=== PATIENT | female | born 1940 | race Caucasian/White ===

== ENCOUNTER 2019-06-05 06:06 | Inpatient (IN) ==
--- NOTE | 2019-05-10 14:16 | PAT Medication Instructions ---
Medication Instructions Date of Service May 10, 2019 Home Medications acetaminophen [Tylenol Extra Strength] 500 mg PO Q6H PRN ferrous sulfate 325 mg PO 3XWK tramadol 50 mg PO UD PRN furosemide [Lasix] 40 mg PO UD PRN potassium chloride 20 meq PO UD PRN DO NOT take the morning of surgery ferrous sulfate 325 mg PO 3XWK furosemide [Lasix] 40 mg PO UD PRN potassium chloride 20 meq PO UD PRN Take morning of surgery With a small sip of water, OTHERWISE NOTHING TO EAT OR DRINK AFTER MIDNIGHT: acetaminophen [Tylenol Extra Strength] 500 mg PO Q6H PRN (if needed, may be taken up to four hours before surgery) tramadol 50 mg PO UD PRN (if needed, may be taken up to four hours before surgery) Other Notes If you have any questions please call us at [phone] or [phone] or [phone] or [phone]
--- NOTE | 2019-05-11 11:29 | Anesthesiology Consultation ---
Date of Service May 11, 2019 Assessment & Plan (1) Encounter for pre-operative examination: Chart Review Chart Review: Acceptable Risk for Surgery ((attempting to get previous anesthesia records)) and Patient seen in Pre Admission Testing Significant scoliosis and kyphosis- had left AUNG with spinal anesthesia with [facility] in [place] - will attempt to get records Pre op labs showing- mild anemia noted on pre op labs- improved from 01/2019. Blood noted in urine- labs faxed to PCP for review for continuity of care- UA not a contraindication to anesthesia. History Surgery Operation Date: 06/05/19 08:10 Proposed Procedures p Right Total Hip Arthroplasty - Haydencecilia Schwartz Height/Weight Height: 5 ft 4 in Weight: 54.2 kg Allergies Allergy/AdvReac Type Severity Reaction Status Date / Time No Known Allergies Allergy Unverified 05/04/19 08:38 Medications Home Medications Medication Instructions Recorded Confirmed Last Taken acetaminophen [Tylenol Extra 500 mg PO Q6H PRN 01/10/19 05/04/19 01/09/19 Strength] 1000 mg ferrous sulfate 325 mg PO 3XWK 01/10/19 05/04/19 01/09/19 tramadol 50 mg PO UD PRN 01/10/19 05/04/19 02/03/19 22:00 50 mg furosemide [Lasix] 40 mg PO UD PRN 05/04/19 05/04/19 Unknown potassium chloride 20 meq PO UD PRN 05/04/19 05/04/19 Unknown Past Medical History Medical History (Updated 05/11/19 @ 11:54 by Laura Pena PA-C) History of gastric ulcer 2018 (approx one year ago)- no current issues Lower extremity edema Occ- takes Lasix PRN Osteoarthritis Exercise / Class Metabolic Activity II 4-5 Yardwork/Stairs/Walk up hill (one flight of stairs- no chest pain or SOB ) Past Surgical History Surgical History (Updated 05/11/19 @ 11:55 by Laura Pena PA-C) History of cataract surgery BOTH History of section History of colonoscopy History of dilatation and curettage History of endoscopy History of total left hip replacement 12/27/2018 ([facility] in [place]) Past Anesthesia History No Hx of Anesthesia Complications and No Family Hx of Anesthesia Complications History of PONV No Hx of PONV and No Hx of Motion Sickness Social History Smoking Status: Never smoker Do You Dip or Chew Tobacco: No Smoking End Date: YRS AGO Hx Alcohol Use: Yes Alcohol type: wine alcohol intake frequency: holidays/special occasions only Hx Substance Use: No substance use type: prescription drug Review of Systems Patient denies chest pain, shortness of breath, dyspnea on exertion, reflux, cough, wheezing, palpitations. No hx of seizures, stroke, PR, apnea/snoring. No hx of blood clots or blood transfusions No recent steroid use Physical Exam Vital Signs VITALS BP 146/69 P 69 TEMP 98.4 SP02 99% RESP 18 Constitutional no acute distress ENMT Mouth: no TMJ clicking Thyromental Distance: > or= 3.5 Finger Breadths (4.0) Mallampati Class: II Full dentures upper and lower Neck normal visual inspection and + limited neck extension (minimal ) Respiratory normal respiratory effort; no respiratory distress Auscultation: lungs clear to auscultation bilaterally; no wheezes Cardiovascular Rate/Rhythm: regular rate and regular rhythm Vessels: no carotid bruit Musculoskeletal Spine: + kyphosis (moderately severe ) and + scoliosis (significant ); no pain with cervical ROM Psychiatric Orientation: alert Testing Laboratory Results 05/11/19 11:38 05/11/19 11:38 PT 10.9 Seconds (9.0-12.0) 05/11/19 11:38 INR 1.1 (0.9-1.1) 05/11/19 11:38 APTT 25.1 Seconds (21.0-31.0) 05/11/19 11:38 Urine Color Dark Yellow 05/11/19 11:38 Urine Appearance Clear (Clear) 05/11/19 11:38 Urine pH 5.0 (4.5-7.5) 05/11/19 11:38 Ur Specific [place] 1.029 (1.000-1.030) 05/11/19 11:38 Urine Protein Negative (Negative) 05/11/19 11:38 Urine Glucose (UA) Negative (Negative) 05/11/19 11:38 Urine Ketones Negative (Negative) 05/11/19 11:38 Urine Nitrite Negative (Negative) 05/11/19 11:38 Ur Leukocyte Esterase Trace (Negative) H 05/11/19 11:38 Urine WBC (Auto) 5-10 /hpf (0-5) H 05/11/19 11:38 Urine RBC (Auto) 10-30 /hpf (0-4) H 05/11/19 11:38 U Hyaline Cast (Auto) 1-5 /lpf (0-5) 05/11/19 11:38 U Epithel Cells (Auto) >30 /lpf (0-5) H 05/11/19 11:38 Urine Bacteria (Auto) Negative (Negative) 05/11/19 11:38 Blood Type O Positive 05/11/19 11:38 Antibody Screen NEGATIVE 05/11/19 11:38 Electrocardiogram Date: 02/04/19 Findings: + NSR @ (98) Voltage criteria for left ventricular hypertrophy. Chest X-Ray Date: 01/10/19 Cardiomegaly. No other convincing evidence of acute cardiopulmonary disease. Possible hyperinflation versus exaggerated thoracic kyphosis. Atherosclerosis of the aortic arch. Cardiac silhouette enlarged. Osteopenia. SPECT gated exaggerated thoracic kyphosis. Scoliosis and degenerative changes of the spine.
[2019-05-11 12:04] LABS: Basophils # (auto) 0.02 K/uL (0-0.2); Basophils % (auto) 0.3 %; Eosinophils # (auto) 0.15 K/uL (0-0.5); Eosinophils % (auto) 2.1 %; Hematocrit (blood only) 40.1 % (37-47); Hemoglobin 11.9 g/dL (12.0-16.0); Immature Granulocytes # (auto) 0.01 K/uL (0.00-0.02); Immature Granulocytes % (auto) 0.1 %; Lymphocytes # (auto) 1.59 K/uL (1.2-3.4); Lymphocytes % (auto) 22.3 %; Mean Corpuscular Hemoglobin 24.9 pg (25-34); Mean Corpuscular Hgb Conc 29.7 g/dL (32-36); Mean Corpuscular Volume 83.9 fL (80-100); Monocytes # (auto) 0.53 K/uL (0.11-0.59); Monocytes % (auto) 7.4 %; Neutrophils # (auto) 4.83 K/uL (1.4-6.5); Neutrophils % (auto) 67.8 %; Platelet Count 274 K/uL (130-400); RDW Coefficient of Variation 17.2 % (11.5-14.5); RDW Standard Deviation 53.7 fL (36.4-46.3); Red Blood Count 4.78 M/uL (4.2-5.4); White Blood Count 7.13 K/uL (4.8-10.8)
[2019-05-11 12:10] LABS: Appearance Urine Clear (Clear); Bacteria Urine Automated Negative (Negative); Bilirubin Urine Negative (Negative); Blood Urine 2+ (Negative); Color Urine Dark Yellow; Epithelial Cell Urine Auto >30 /lpf (0-5); Glucose Urine UA Negative (Negative); Ketones Urine Negative (Negative); Leukocyte Esterase Urine Trace (Negative); Nitrite Urine Negative (Negative); Protein Urine Negative (Negative); Specific Gravity Urine 1.029 (1.000-1.030); Urobilinogen Urine Negative (Negative)
[2019-05-11 12:14] LABS: INR 1.1 (0.9-1.1); Partial Thromboplastin Ratio 0.9; Partial Thromboplastin Time 25.1 Seconds (21.0-31.0); Prothrombin Time 10.9 Seconds (9.0-12.0)
[2019-05-11 12:19] LABS: Albumin Level 3.5 gm/dl (3.4-5.0); BUN Creatinine Ratio 29.1 (10-20); Calcium 9.2 mg/dl (8.5-10.1); Creatinine Clr Calc Pharmacy 58.2 ml/min; Est GFR (African American) 95.9; Est GFR (Non-African American) 82.7; Potassium 4.3 mmol/L (3.5-5.1)
[2019-05-11 12:22] LABS: Albumin Globulin Ratio 0.9 (0.9-2); Bilirubin,Total 0.2 mg/dl (0.2-1); Globulin 3.7 gm/dl (2.5-4.0); Total Protein 7.2 gm/dl (6.4-8.2)
--- NOTE | 2019-06-04 19:39 | History & Physical Report ---
Date of Service June 04, 2019 Assessment & Plan (1) Degenerative joint disease of right hip: Plan is to admit and undergo right AUNG. History of Present Illness Chief Complaint: right hip pain Primary Care Provider: Reynaldo [place] DO Pt having right hip and groin pain for years. Using a cane and walker for about 2 years now. Allergies Allergy/AdvReac Type Severity Reaction Status Date / Time No Known Allergies Allergy Unverified 05/04/19 08:38 Home Medications Home Medications Medication Instructions Recorded Confirmed Type acetaminophen [Tylenol Extra 500 mg PO Q6H PRN 01/10/19 05/04/19 History Strength] ferrous sulfate 325 mg PO 3XWK 01/10/19 05/04/19 History tramadol 50 mg PO UD PRN 01/10/19 05/04/19 History furosemide [Lasix] 40 mg PO UD PRN 05/04/19 05/04/19 History potassium chloride 20 meq PO UD PRN 05/04/19 05/04/19 History Past Med/Surg History Medical History (Updated 06/04/19 @ 19:43 by Hayden Schwartz) History of gastric ulcer 2018 (approx one year ago)- no current issues Lower extremity edema Occ- takes Lasix PRN Osteoarthritis Surgical History (Updated 05/11/19 @ 11:55 by Laura Pena PA-C) History of cataract surgery BOTH History of section History of colonoscopy History of dilatation and curettage History of endoscopy History of total left hip replacement 12/27/2018 ([facility] in [place]) Social History Preferred Language: Danish Communication Ability: Effective Welfare Aide Required: No Beliefs That Will Affect Care: None Current Living Situation: Spouse Other Information That Helps Us Care for You: No Feels Safe at Home: Yes Smoking Status: Never smoker Do You Dip or Chew Tobacco: No ; Smoking End Date: YRS AGO ; Hx Alcohol Use: Yes Alcohol type: wine Hx Substance Use: No Review of Systems All systems reviewed & are unremarkable except as noted in HPI & below Physical Exam Constitutional: WD/WN, vitals as above Neck: trachea midline, no thyromegaly Respiratory: normal respiratory effort, lungs clear to auscultation Cardiovascular: RRR, no murmur, no edema Gastrointestinal (Abdomen): normal bowel sounds, soft, nontender, no hepatospl enomegaly Musculoskeletal: Hip: + limited ROM of hip and + hip ROM with crepitation
[~2019-06-05 06:06] MED LIST: ACETAMINOPHEN 500 MG TAB PO SCH; CEFAZOLIN 1000MG 1,000 MG/7.5 ML SYR IV SCH; CeleBREX 200 MG CAP PO SCH; FAMOTIDINE 20 MG TAB PO SCH; LR 500ML BOLUS, THEN 15ML/HR IV SCH; LR 60ML/HR IV SCH; METOCLOPRAMIDE HCL 10 MG TABLET PO SCH; ROPIVACAINE 0.5% HCL/PF 150 MG, BUPIVACAINE 0.5% MPF 30 ML, EPINEPHrine 30MG/30ML (OR U... INSTIL SCH; TRANEXAMIC ACID 1,000 MG **IV Intra-op IV SCH; TRANEXAMIC ACID 1,000 MG **IV Pre-op IV SCH; dexAMETHasone 4 MG TAB PO SCH
[2019-06-05] MEDS ORDERED: BUPIVACAINE 0.5 % 5 MG/1 ML PF 10ML VIAL ONE (06:31)
--- NOTE | 2019-06-05 06:46 | History & Physical Bridge Note ---
Date of Service June 05, 2019 History & Physical Bridge Note I have examined the patient, reviewed the History & Physical and in the interval since the performance of the History & Physical I have noted the following changes of clinical significance: no changes noted
[2019-06-05] MEDS ORDERED: MIDAZOLAM HCL 1 MG/ML 2ML VIAL ONE ×2 (06:52→07:02)
[2019-06-05] MEDS ORDERED: PROPOFOL IV EMULSION 10 MG/ML 20 ML VIAL IV ONE (07:01)
[2019-06-05] MEDS ORDERED: LIDOCAINE HCL 2% 2 ML VIAL/AMP(20MG/ML) INFIL ONE (07:01)
[2019-06-05] MEDS ORDERED: ePHEDrine sulfate 50 MG/ML AMP IV PRN (07:17)
[2019-06-05] MEDS ORDERED: ONDANSETRON INJ 2 MG/ML 2 ML VIAL IV PRN ×2 (07:17→10:55)
[2019-06-05] MEDS ORDERED: PHENYLEPHRINE 100MCG/ML 5ML SYR IV PRN (07:17)
[2019-06-05] MEDS ORDERED: HYDROmorphone INJ 1 MG/ML SYRINGE IV PRN (07:17)
[2019-06-05] MEDS ORDERED: ATROPINE SULFATE 0.1 MG/ML 10ML SYR IV PRN (07:17)
[2019-06-05] MEDS ORDERED: ORTHO JOINT ANESTHETIC ONE (07:39)
[2019-06-05] MEDS ORDERED: BACITRACIN INJ 50,000 UNIT VIAL ONE (07:39)
[2019-06-05] MEDS ORDERED: CEFAZOLIN 250 MG/ML 1 GM VIAL ONE (09:01)
--- NOTE | 2019-06-05 09:16 | Operative Report ---
Post Operative Report Pre & Post Diagnosis Operation Date: 06/05/19 08:10 Pre-Op Diagnosis: Right Hip Osteoarthritis Post-Op Diagnosis: Right Hip Osteoarthritis I identified the patient and participated in the time-out.: Yes Procedure Operation Date: 06/05/19 08:10 Actual Procedures p Right Total Hip Arthroplasty(Right) - Hayden Schwartz Surgeon Hayden Schwartz Town Manager Abhilash Begum pac Estimated Blood Loss 40 Findings Consistent with Post-Op Diagnosis Specimens none Complications none Disposition Disposition: Recovery Room Description of Procedure IMPLANTS USED: Hailey size 62 mm acetabular cup, 1 acetabular screw, 36 mm X3 elevated liner, a #5 Accolade 2 stem with a 127 neck, 36 mm +0 ceramic head INDICATIONS: Mrs. Lyons is a pleasant female who has unfortunately failed all forms of conservative measures. Therefore, they have has decided to undergo elective surgical intervention. All risks and benefits of the surgery were discussed with the patient and the family in entirety. PROCEDURE: The patient was brought to the operating room and properly identified by myself, anesthesia, and staff. Patient was given a spinal anesthetic and placed on the operating table with the right hip up. The hip was then prepped and draped in the standard orthopedic fashion. We made a standard posterolateral approach over the greater trochanteric area. We then dissected down to subcutaneous tissue until the fascia was identified. We incised the fascia in line with the skin incision. We then split the gluteus cody muscles with finger dissection. We then put the Charnley retractor in place. We placed the retractor underneath the gluteus medius to expose the piriformis. The piriformis was then tagged with a tag suture and released from the insertion from the greater trochanteric area with the use of electrocautery. We then performed a T capsulotomy and the femoral head and neck were atraumatically dislocated. We then performed femoral neck osteotomy at the pre-template site. We removed the femoral head and neck without difficulty. We then placed the retractor around the acetabulum. We then began to ream the acetabulum to the appropriate size. We then impacted the cup into place and had a very good fixation within the pelvis. We then put the liner in place as well. Then using multiple size approaches from the Accolade 2 system a size ##5 fit very nicely in the proximal femur. I then put trial components in place. WE had very good range of motion, excellent stability, and excellent leg length equality. We removed the trial components and irrigated the wound. We then impacted the c omponents in place and irrigated the wound once more. We then closed the capsule and fascia with a 0 Vicryl suture, the deep dermis with 2-0 Vicryl suture, and finally the skin with a running 3-0 Vicryl subcuticular stitch. A sterile dressing was applied. The patient was taken to the recovery room in stable condition. Due to the complex nature of the procedure, the entire surgery was performed with the operational assistance of Abhilash Begum PA-C. The college sports assistant was under direct supervision, was involved in the actual performance of all aspects of the surgical procedure including hemostasis, tissue retraction and incision, instrument management, patient positioning, and wound closure. I attest to the content of the Intraoperative Record and any orders documented therein. Any exceptions are noted below.
--- NOTE | 2019-06-05 10:52 | Anesthesiology Progress Note ---
Date of Service June 05, 2019 Anesthesia Post Procedure Vital Signs Vital Signs: Temp Pulse Resp BP BP Pulse Ox 06/05/19 10:15 80 18 108/70 95 06/05/19 10:05 78 15 117/63 97 06/05/19 09:55 84 17 113/54 L 96 06/05/19 09:45 36.7 C 72 17 108/57 L 100 06/05/19 06:41 36.7 C 86 20 155/72 H 99 Transfer of Care Handoff Completed per policy Notes Mental Status: alert / awake / arousable Patient Amnestic to Procedure: Yes Nausea / Vomiting: adequately controlled Pain: adequately controlled Airway Patency, RR, SpO2: stable & adequate BP & HR: stable & adequate Hydration State: stable & adequate Neuraxial Anesthesia: was administered and sensory block is resolving Anesthetic Complications: no major complications apparent
[2019-06-05] MEDS ORDERED: bisacodyL 10 MG SUPP PR PRN (10:55)
[2019-06-05] MEDS ORDERED: NALOXONE HCL 0.4 MG/1 ML VIAL/CARP IV PRN (10:55)
[2019-06-05] MEDS ORDERED: MAGNESIUM HYDROXIDE SUSP 30 ML UDC PO PRN (10:55)
[2019-06-05] MEDS ORDERED: METOCLOPRAMIDE HCL INJ 5 MG/ML 2 ML VIAL IV PRN (10:55)
[2019-06-05] MEDS ORDERED: OXYCODONE HCL IR 5 MG TAB (IMMEDIATE RELEASE) PO PRN (10:55)
[2019-06-05] MEDS ORDERED: TRAMADOL HCL 50 MG TABLET PO PRN (10:55)
[2019-06-05] MEDS: SODIUM CHLORIDE 0.9% 1000ML 1,000 ML IV SCH ×2 (11:32→23:24)
[2019-06-05] MEDS: ACETAMINOPHEN 500 MG TAB PO SCH ×2 (13:44→21:31)
[2019-06-05] MEDS: CEFAZOLIN 2000MG 2,000 MG/15 ML SYR IV SCH ×2 (17:43→23:53)
[2019-06-05] MEDS ORDERED: SENNA 8.6 MG TAB PO SCH (21:00)
[2019-06-05] MEDS: DOCUSATE SODIUM 100 MG CAP PO SCH (21:31)
[2019-06-06 05:37] LABS: Eosinophils # (auto) 0.02 K/uL (0-0.5); Eosinophils % (auto) 0.2 %; Hematocrit (blood only) 32.4 % (37-47); Hemoglobin 9.9 g/dL (12.0-16.0); Immature Granulocytes # (auto) 0.02 K/uL (0.00-0.02); Immature Granulocytes % (auto) 0.2 %; Lymphocytes # (auto) 1.68 K/uL (1.2-3.4); Lymphocytes % (auto) 17.2 %; Mean Corpuscular Hemoglobin 25.3 pg (25-34); Mean Corpuscular Hgb Conc 30.6 g/dL (32-36); Mean Corpuscular Volume 82.9 fL (80-100); Monocytes # (auto) 1.28 K/uL (0.11-0.59); Monocytes % (auto) 13.1 %; Neutrophils # (auto) 6.75 K/uL (1.4-6.5); Neutrophils % (auto) 69.3 %; Platelet Count 231 K/uL (130-400); RDW Coefficient of Variation 16.8 % (11.5-14.5); Red Blood Count 3.91 M/uL (4.2-5.4); White Blood Count 9.75 K/uL (4.8-10.8)
[2019-06-06] MEDS: ACETAMINOPHEN 500 MG TAB PO SCH (05:55)
[2019-06-06 06:10] LABS: BUN Creatinine Ratio 28.2 (10-20); Calcium 8.2 mg/dl (8.5-10.1); Creatinine Clr Calc Pharmacy 44.9 ml/min; Est GFR (African American) 70.1; Est GFR (Non-African American) 60.5; Potassium 4.3 mmol/L (3.5-5.1)
--- NOTE | 2019-06-06 07:54 | Anesthesiology Progress Note ---
Date of Service June 06, 2019 Anesthesia Post Procedure Vital Signs Vital Signs: Temp Pulse Pulse Resp BP Pulse Ox 06/06/19 07:30 36.6 C 72 18 137/81 100 06/06/19 03:24 36.7 C 85 16 102/63 97 06/05/19 22:58 36.6 C 77 16 100/57 L 96 06/05/19 20:41 36.7 C 67 18 117/62 96 06/05/19 15:08 36.6 C 81 18 103/61 96 06/05/19 13:34 36.5 C 70 18 110/62 96 06/05/19 12:36 90 16 117/70 98 06/05/19 11:35 67 18 121/57 L 98 06/05/19 11:08 70 18 123/72 96 06/05/19 11:05 70 18 123/72 96 06/05/19 10:15 80 18 108/70 95 06/05/19 10:05 78 15 117/63 97 06/05/19 09:55 84 17 113/54 L 96 06/05/19 09:45 36.7 C 72 17 108/57 L 100 Pain Intensity Right Hip: Pain Intensity: 0 Notes Mental Status: alert / awake / arousable and participated in evaluation Patient Amnestic to Procedure: Yes Nausea / Vomiting: adequately controlled Pain: adequately controlled Airway Patency, RR, SpO2: stable & adequate BP & HR: stable & adequate Hydration State: stable & adequate Neuraxial Anesthesia: was administered and sensory block resolved Anesthetic Complications: no major complications apparent and Pt Satisfied with anesthetic care
[2019-06-06] MEDS ORDERED: dexAMETHasone 10 MG in SYRINGE 0 ML IV SCH (08:00)
[2019-06-06] MEDS: DOCUSATE SODIUM 100 MG CAP PO SCH (08:55)
[2019-06-06] MEDS ORDERED: MULTIVITAMIN TAB PO SCH (09:00)
[2019-06-06] MEDS ORDERED: RIVAROXABAN 10 MG TABLET PO SCH (09:00)
--- NOTE | 2019-06-06 09:41 | Orthopedic Progress Note ---
Date of Service June 06, 2019 Assessment & Plan (1) Degenerative joint disease of right hip: Postop day 1 status post right total hip arthroplasty. PT/OT protocols. Weightbearing as tolerated. DVT prophylaxis with Xarelto and SCDs. Pain management with p.o. acetaminophen, oxycodone and/or tramadol, IV hydromorphone DC planning-patient is planning for home health services upon discharge. Admission and Anticipated Discharge Date Admission Date: June 05, 2019 Subjective Postop day 1 Patient lying in bed. Awake and alert. No complaints this morning. Pain is controlled. She denies any shortness of breath, chest pain, lightheadedness. She is hoping to go home today. Physical Exam Physical Exam: Dressings clean, dry, intact. Is soft and nontender. Calves are soft nontender. Neurovascular is intact. Toes are mobile. He is good dorsiflexion plantarflexion of the right foot and ankle. Hemovac drainage was 100 mL's from the previous shift. Results & Data ([facility]) Vital Signs (Past 12 Hours) Vital Signs Temp Pulse Resp BP Pulse Ox 06/06/19 07:30 36.6 C 72 18 137/81 100 06/06/19 03:24 36.7 C 85 16 102/63 97 06/05/19 22:58 36.6 C 77 16 100/57 L 96 Laboratory Results Laboratory Results WBC 9.75 K/uL (4.8-10.8) 06/06/19 04:53 RBC 3.91 M/uL (4.2-5.4) L 06/06/19 04:53 Hgb 9.9 g/dL (12.0-16.0) L 06/06/19 04:53 Hct 32.4 % (37-47) L 06/06/19 04:53 MCV 82.9 fL (80-100) 06/06/19 04:53 MCH 25.3 pg (25-34) 06/06/19 04:53 MCHC 30.6 g/dL (32-36) L 06/06/19 04:53 RDW Std Deviation 51.0 fL (36.4-46.3) H 06/06/19 04:53 RDW Coeff of Estela 16.8 % (11.5-14.5) H 06/06/19 04:53 Plt Count 231 K/uL (130-400) 06/06/19 04:53 MPV 10.0 fL (7.4-10.4) 06/06/19 04:53 Immature Gran % (Auto) 0.2 % 06/06/19 04:53 Neut % (Auto) 69.3 % 06/06/19 04:53 Lymph % (Auto) 17.2 % 06/06/19 04:53 Divide % (Auto) 13.1 % 06/06/19 04:53 Eos % (Auto) 0.2 % 06/06/19 04:53 Baso % (Auto) 0.0 % 06/06/19 04:53 Immature Gran # (Auto) 0.02 K/uL (0.00-0.02) 06/06/19 04:53 Neut # (Auto) 6.75 K/uL (1.4-6.5) H 06/06/19 04:53 Lymph # (Auto) 1.68 K/uL (1.2-3.4) 06/06/19 04:53 Divide # (Auto) 1.28 K/uL (0.11-0.59) H 06/06/19 04:53 Eos # (Auto) 0.02 K/uL (0-0.5) 06/06/19 04:53 Baso # (Auto) 0.00 K/uL (0-0.2) 06/06/19 04:53 PT 10.9 Seconds (9.0-12.0) 05/11/19 11:38 INR 1.1 (0.9-1.1) 05/11/19 11:38 APTT 25.1 Seconds (21.0-31.0) 05/11/19 11:38 PTT Ratio 0.9 05/11/19 11:38 Sodium 141 mmol/L (136-145) 06/06/19 04:53 Potassium 4.3 mmol/L (3.5-5.1) 06/06/19 04:53 Chloride 111 mmol/L (98-107) H 06/06/19 04:53 Carbon Dioxide 26 mmol/L (21-32) 06/06/19 04:53 Anion Gap 4.0 (3-11) 06/06/19 04:53 BUN 26 mg/dl (7-18) H 06/06/19 04:53 Creatinine 0.92 mg/dl (0.6-1.2) 06/06/19 04:53 Est Cr Clr Drug Dosing 44.9 ml/min 06/06/19 04:53 Est GFR ( Amer) 70.1 06/06/19 04:53 Est GFR (Non-Af Amer) 60.5 06/06/19 04:53 BUN/Creatinine Ratio 28.2 (10-20) H 06/06/19 04:53 Glucose 87 mg/dl (70-99) 06/06/19 04:53 Calcium 8.2 mg/dl (8.5-10.1) L 06/06/19 04:53 Total Bilirubin 0.2 mg/dl (0.2-1) 05/11/19 11:38 AST 11 U/L (15-37) L 05/11/19 11:38 ALT 15 U/L (12-78) 05/11/19 11:38 Alkaline Phosphatase 105 U/L (45-117) 05/11/19 11:38 Total Protein 7.2 gm/dl (6.4-8.2) 05/11/19 11:38 Albumin 3.5 gm/dl (3.4-5.0) 05/11/19 11:38 Globulin 3.7 gm/dl (2.5-4.0) 05/11/19 11:38 Albumin/Globulin Ratio 0.9 (0.9-2) 05/11/19 11:38 Urine Color Dark Yellow 05/11/19 11:38 Urine Appearance Clear (Clear) 05/11/19 11:38 Urine pH 5.0 (4.5-7.5) 05/11/19 11:38 Ur Specific [place] 1.029 (1.000-1.030) 05/11/19 11:38 Urine Protein Negative (Negative) 05/11/19 11:38 Urine Glucose (UA) Negative (Negative) 05/11/19 11:38 Urine Ketones Negative (Negative) 05/11/19 11:38 Urine Blood 2+ (Negative) H 05/11/19 11:38 Urine Nitrite Negative (Negative) 05/11/19 11:38 Urine Bilirubin Negative (Negative) 05/11/19 11:38 Urine Urobilinogen Negative (Negative) 05/11/19 11:38 Ur Leukocyte Esterase Trace (Negative) H 05/11/19 11:38 Urine WBC (Auto) 5-10 /hpf (0-5) H 05/11/19 11:38 Urine RBC (Auto) 10-30 /hpf (0-4) H 05/11/19 11:38 U Hyaline Cast (Auto) 1-5 /lpf (0-5) 05/11/19 11:38 U Epithel Cells (Auto) >30 /lpf (0-5) H 05/11/19 11:38 Urine Bacteria (Auto) Negative (Negative) 05/11/19 11:38 Urine Yeast Not Reportable 05/11/19 11:38 Nasal Screen MRSA (PCR) Negative (Negative) 05/11/19 11:38 Blood Type O Positive 05/11/19 11:38 Antibody Screen NEGATIVE 05/11/19 11:38
--- NOTE | 2019-06-06 12:34 | Discharge Summary ---
Date of Service June 06, 2019 Admission HPI Per Admitting Provider Pt having right hip and groin pain for years. Using a cane and walker for about 2 years now. Admission Exam Per Admitting Provider Constitutional: WD/WN, vitals as above Neck: trachea midline, no thyromegaly Respiratory: normal respiratory effort, lungs clear to auscultation Cardiovascular: RRR, no murmur, no edema Gastrointestinal (Abdomen): normal bowel sounds, soft, nontender, no hepatosplenomegaly Musculoskeletal: Hip: + limited ROM of hip and + hip ROM with crepitation Principal Diagnosis Right hip osteoarthritis Discharge Data Allergies Allergy/AdvReac Type Severity Reaction Status Date / Time No Known Allergies Allergy Verified 06/05/19 07:03 Consultations 06/06/19 08:00 Consult Case Management - Discharge Planning Routine Procedures Performed Operation Date: 06/05/19 08:10 Actual Procedures p Right Total Hip Arthroplasty(Right) - [facility] Hospital Course (1) Degenerative joint disease of right hip: Assessment & Plan (1) Degenerative joint disease of right hip: Postop day 1 status post right total hip arthroplasty. PT/OT protocols. Weightbearing as tolerated. DVT prophylaxis with Xarelto and SCDs. Pain management with p.o. acetaminophen, oxycodone and/or tramadol, IV hydromorphone DC planning-patient is planning for home health services upon discharge. Patient progressed well with her physical therapy and remaining stable. Vital signs are stable. Her pain control was adequate and was felt she be discharged home with home health services. Admission and Anticipated Discharge Date Admission Date: June 05, 2019 Subjective Postop day 1 Patient lying in bed. Awake and alert. No complaints this morning. Pain is controlled. She denies any shortness of breath, chest pain, lightheadedness. She is hoping to go home today. Physical Exam Physical Exam: Dressings clean, dry, intact. Is soft and nontender. Calves are soft nontender. Neurovascular is intact. Toes are mobile. He is good d orsiflexion plantarflexion of the right foot and ankle. Hemovac drainage was 100 mL's from the previous shift. Results & Data ([facility]) Vital Signs (Past 12 Hours) Vital Signs Temp Pulse Resp BP Pulse Ox 06/06/19 07:30 36.6 C 72 18 137/81 100 06/06/19 03:24 36.7 C 85 16 102/63 97 06/05/19 22:58 36.6 C 77 16 100/57 L 96 Laboratory Results Laboratory Results WBC 9.75 K/uL (4.8-10.8) 06/06/19 04:53 RBC 3.91 M/uL (4.2-5.4) L 06/06/19 04:53 Hgb 9.9 g/dL (12.0-16.0) L 06/06/19 04:53 Hct 32.4 % (37-47) L 06/06/19 04:53 Total Time Total Time Spent Total Time Spent (In Minutes): 5 Discharge Plan Discharge Items Patient Disposition: Home - Home Health Services Reason For Visit: Right Hip Osteoarthritis Discharge Diagnosis: Right hip osteoarthritis Activity: Per Instructions section Weightbearing: Right weightbearing Weightbearing Comment: As tolerated with walker Non-emergency contact: Surgeon Call non-emergency contact if: your pain is not controlled, your temperature is above 101.5, your wound has increased redness and your wound has increased drainage Follow-up/Referrals: Reynaldo Randall DO [Primary Care Provider] - Diet: Regular Addtl Attending Provider Instructions: Please follow Dr. Clark's total hip arthroplasty instructions as written. They will be given to you prior to your discharge. Your medications have been sent to the pharmacy. Per Dr Goodrich, do not take any aspirin or Celebrex while you are taking Xarelto. Please call Dr. Goodrich's office with any medication questions. Please call Dr. Goodrich's office when you get home to arrange a time to have your Hemovac drain removed. Silverlon- This is a large adhesive bandage that contains silver ions. This helps your incision heal by fighting off bacteria and protecting it from the outside environment. You are permitted to shower with this dressing. This will remain on your incision for 7 days and then should be removed. Some visible blood or drainage through the dressing window is normal. If there is significant drainage or leaking noted before the 7 days notify your doctor's office immediately. Once removed, keep incision clean and dry. If there is any drainage or redness noted, please call your surgeon. Please follow-up with Dr. Goodrich in 2 weeks. Please call for appointment if you do not have one. [phone] Stand-Alone Forms: My [facility], Smoking Cessation Medications and DC Order Prescriptions: New acetaminophen 500 mg Tablet 1,000 mg PO Q8 14 Days Qty: 84 RF: 0 Xarelto 10 mg Tablet 10 mg PO DAILY 30 Days Qty: 30 RF: 0 Continued tramadol 50 mg tablet 50 mg PO UD PRN (Reason: Pain) RF: 0 acetaminophen [Tylenol Extra Strength] 500 mg Tablet 500 mg PO Q6H PRN (Reason: Pain) RF: 0 ferrous sulfate 325 mg (65 mg iron) tablet 325 mg PO 3XWK RF: 0 potassium chloride 20 mEq Tablet Extended Release 20 meq PO UD PRN (Reason: FLUID PILL) RF: 0 furosemide [Lasix] 40 mg tablet 40 mg PO UD PRN (Reason: Edema) RF: 0 Discharge Orders: Discharge Order (Routine); Ordered 06/06/19 Ordered By: Darrell Donovan Admission Data Admit Date/Time: 06/05/19 09:50 Attending Provider: Hayden Goodrich Admit Provider: Hayden Goodrich Primary Care Provider: Reynaldo Randall
== END 2019-06-06 13:47 | disposition home health service (06) | DRG 470 ==
LOC: ASU 06:06 → 3E 09:50